=== PATIENT | male | born 1980 | race Caucasian/White ===

== ENCOUNTER 2017-10-04 11:14 | Emergency (ER) | payer MEDICAID, OTHER ==
[2017-10-04 11:25] VITALS: BP 132/85; PULSE 69; RESP 18; TEMP 98.2; O2SAT 95
--- NOTE | 2017-10-04 12:02 | RAD ---
Date of service: 10/04/2017 HISTORY: cough COMPARISON: No prior. TECHNIQUE: Chest PA and lateral FINDINGS: LUNGS: No active pulmonary disease. PLEURA: No significant pleural effusion identified. No pneumothorax apparent. CARDIOVASCULAR: Normal. OSSEOUS STRUCTURES: No significant abnormalities. VISUALIZED UPPER ABDOMEN: Normal. OTHER FINDINGS: None. IMPRESSION: No active disease.
--- NOTE | 2017-10-04 12:07 | C.PDOC ---
History Of Present Illness 37 yo male c/o "I got a cough " for three days. "Its better now that Im getting the phlegm out." Denies fever, chest pain, sob, sore throat, abdominal pain, or n/v. Took Dayquil yesterday, none today. Time Seen by Provider: 10/04/17 11:27 Chief Complaint (Nursing): Cough, Cold, Congestion History Per: Patient History/Exam Limitations: no limitations Onset/Duration Of Symptoms: Days Current Symptoms Are (Timing): Still Present Severity: Moderate Past Medical History Reviewed: Historical Data, Nursing Documentation, Vital Signs Vital Signs: Last Vital Signs Temp 98.2 F 10/04/17 11:22 Pulse 69 10/04/17 11:22 Resp 18 10/04/17 11:22 BP 132/85 10/04/17 11:22 Pulse Ox 95 10/04/17 13:06 - Medical History PMH: Anxiety Denies: Chronic Kidney Disease Surgical History: No Surg Hx - [facility] Procedures TETANUS TOXOID ADMINIST (02/07/14) Family History: States: No Known Family Hx - Social History Hx Tobacco Use: Yes Hx Alcohol Use: Yes Hx Substance Use: No - Immunization History Hx Tetanus Toxoid Vaccination: Yes Hx Influenza Vaccination: No Hx Pneumococcal Vaccination: No Review Of Systems Except As Marked, All Systems Reviewed And Found Negative. Constitutional: Negative for: Fever, Chills ENT: Negative for: Throat Pain Cardiovascular: Negative for: Chest Pain Respiratory: Positive for: Cough. Negative for: Shortness of Breath Gastrointestinal: Negative for: Nausea, Vomiting, Abdominal Pain Physical Exam - Physical Exam Appears: Non-toxic, No Acute Distress (No cough noted, layign flat, speaking in full sentences) Skin: Normal Color, Warm, Dry Head: Atraumatic, Normacephalic Eye(s): bilateral: Normal Inspection, EOMI Ear(s): Bilateral: Normal Nose: Normal Oral Mucosa: Moist Throat: Normal, No Erythema, No Exudate Neck: Normal ROM, Supple Chest: Symmetrical Cardiovascular: Rhythm Regular Respiratory: Normal Breath Sounds, No Rales, No Rhonchi, No Wheezing Gastrointestinal/Abdominal: Soft, No Tenderness Extremity: Normal ROM Neurological/Psych: Oriented x3, Normal Speech ED Course And Treatment O2 Sat by Pulse Oximetry: 95 (RA) Pulse Ox Interpretation: Normal - Radiology CXR: Interpreted by Me, Viewed By Me CXR Interpretation: Yes: No Acute Disease Progress Note: CXR was negative. Discussed with pt hydration, symptomatic treatment , and instructed to follow up with PMD in 1-2 days. Disposition - Disposition Referrals: Jeancarlos Conrad MD [Staff Provider] - Disposition: HOME/ ROUTINE Disposition Time: 12:03 Condition: STABLE Additional Instructions: Follow up with your doctor in 1-2 days. Return to ER if symptoms persist or worsen. Prescriptions: Benzonatate [Tessalon Perle] 100 mg PO TID PRN #15 capsule PRN Reason: Cough Instructions: Upper Respiratory Infection (ED) Forms: [employer] (Kiswahili) - Clinical Impression Clinical Impression: Upper respiratory infection - PA / PRESSURE TESTER / Resident Statement MD/DO has reviewed & agrees with the documentation as recorded. - Scribe Statement The provider has reviewed the documentation as recorded by the Iliribe Sabas Pearson Provider Attestation All medical record entries made by the Scribe were at my direction and personally dictated by me. I have reviewed the chart and agree that the record accurately reflects my personal performance of the history, physical exam, medical decision making, and the department course for this patient. I have also personally directed, reviewed, and agree with the discharge instructions and disposition.
== END 2017-10-04 12:15 | disposition home or self-care (01) ==
LOC: C.ER 11:14
DX: J06.9 Acute upper respiratory infection, unspecified (principal); F17.210 Nicotine dependence, cigarettes, uncomplicated

== ENCOUNTER 2017-11-08 15:52 | Emergency (ER) | payer MEDICAID, OTHER ==
[2017-11-08 15:57] VITALS: TEMP 98.2; O2SAT 97
--- NOTE | 2017-11-08 16:18 | C.PDOC ---
History Of Present Illness CC: Cold Symptoms Patient is a 37 year old male with no known past medical history who presents to the ED with cold symptoms. Patient was seen 10/04/17 for cold symptoms with negative imaging and was discharge with carly perezfabián. Patient presents to the ED with the same symptoms. Patient denies any chest pain, palpitations, SOB , fever, chills, headache, runny nose, congestion or facial pain. Chief Complaint (Nursing): Cough, Cold, Congestion History Per: Patient History/Exam Limitations: no limitations Onset/Duration Of Symptoms: Days Current Symptoms Are (Timing): Still Present Severity: Mild Pain Scale Rating Of: 2 Past Medical History Vital Signs: Last Vital Signs Temp 98.2 F 11/08/17 15:57 Pulse 68 11/08/17 16:50 Resp 18 11/08/17 16:50 BP 128/73 11/08/17 16:50 Pulse Ox 97 11/08/17 16:50 - Medical History PMH: Anxiety Denies: Chronic Kidney Disease - [facility] Procedures TETANUS TOXOID ADMINIST (02/07/14) Family History: States: Unknown Family Hx - Social History Hx Tobacco Use: Yes Hx Alcohol Use: Yes Hx Substance Use: No - Immunization History Hx Tetanus Toxoid Vaccination: No Hx Influenza Vaccination: No Hx Pneumococcal Vaccination: No Review Of Systems Constitutional: Negative for: Fever, Chills, Weakness Eyes: Negative for: Pain, Vision Change ENT: Negative for: Ear Pain, Ear Discharge, Nose Congestion, Mouth Pain, Throat Swelling Cardiovascular: Negative for: Chest Pain, Palpitations Respiratory: Positive for: Cough, Sputum. Negative for: Shortness of Breath, Hemoptysis, SOB with Excertion, Pleuritic Pain, Wheezing Gastrointestinal: Negative for: Nausea, Vomiting, Abdominal Pain, Diarrhea, Constipation Musculoskeletal: Negative for: Neck Pain, Shoulder Pain Skin: Negative for: Rash Neurological: Negative for: Headache, Dizziness Physical Exam - Physical Exam Appears: Well, No Acute Distress Skin: Normal Color, Warm Head: Atraumatic, Normacephalic Eye(s): bilateral: Normal Inspection, PERRL, EOMI Ear(s): Bilateral: Normal Nose: Normal, No Discharge, No Epistaxis Oral Mucosa: Moist Tongue: Normal Appearing Lips: Normal Appearing Throat: Normal, No Erythema, No Exudate, No Drooling, No Mass Neck: Normal, Normal ROM Cardiovascular: Rhythm Regular Respiratory: Normal Breath Sounds, No Decreased Breath Sounds, No Accessory Muscle Use, No Rales, No Rhonchi, No Stridor, No Wheezing Gastrointestinal/Abdominal: Normal Exam, Bowel Sounds, Soft, No Tenderness, No Organomegaly, No Mass, No Distention Extremity: Normal ROM, No Tenderness, No Pedal Edema Extremity: Bilateral: Atraumatic Neurological/Psych: Oriented x3, Normal Speech, Normal Cognition ED Course And Treatment O2 Sat by Pulse Oximetry: 97 Disposition Discussed With DrKaren: Luis Dial - Disposition Referrals: [facility] [Outside] Disposition: HOME/ ROUTINE Disposition Time: 16:22 Condition: GOOD Additional Instructions: Please discharge patient home Please follow up with [facility] in order to establish primary care, in 1-2 days We encourage you to stop tobacco use as discussed Please take Robitussin 15mg PO Q8H for cough as needed Please continue hydration Prescriptions: Dextromethorphan HBr [Robitussin] 15 mg PO Q8 PRN #10 capsule PRN Reason: Cough And Congestion Instructions: Smoking: Not Just Harmful to Your Lungs and Heart Forms: [facility] (Belarusian), General Discharge Instructions - Clinical Impression Clinical Impression: Tobacco abuse, Smokers' cough
[2017-11-08 16:59] VITALS: BP 128/73; PULSE 68; RESP 18
== END 2017-11-08 16:50 | disposition home or self-care (01) ==
LOC: C.ER 15:52
DX: J41.0 Simple chronic bronchitis (principal); Z72.0 Tobacco use

== ENCOUNTER 2017-11-29 18:15 | Emergency (ER) | payer MEDICAID ==
[2017-11-29] MEDS ORDERED: Sodium Chloride 0.9% 1,000 ML IV ONE (19:38)
[2017-11-29 20:01] LABS: BASO # 0.1 K/uL (0.0-0.2); BASO % 1.3 % (0.0-2.0); EOS # 0.3 K/uL (0.0-0.7); EOS % 2.9 % (0.0-4.0); HEMOGLOBIN 14.8 g/dL (12.0-18.0); LYMPH # 1.6 K/uL (1.0-4.3); LYMPH % 16.7 % (20.0-40.0); MEAN CELL VOLUME 89.6 fL (80.0-94.0); MEAN CORPUSCULAR HEMOGLOBIN 31.2 pg (27.0-31.0); MEAN CORPUSCULAR HGB CONC 34.8 g/dL (33.0-37.0); MEAN PLATELET VOLUME 8.5 fL (7.2-11.7); MONO # 0.6 K/uL (0.0-0.8); NEUT # 6.9 K/uL (1.8-7.0); NEUT % 73.1 % (50.0-75.0); NRBC % 0.1 % (0.0-2.0); RBC 4.73 Mil/uL (4.40-5.90); RED CELL DISTRIBUTION WIDTH 13.7 % (11.5-14.5); WHITE BLOOD COUNT 9.4 K/uL (4.8-10.8)
[2017-11-29 20:03] VITALS: O2SAT 99
[2017-11-29 20:17] LABS: ALB/GLOB RATIO 1.3 (1.0-2.1); ALBUMIN 4.3 g/dL (3.5-5.0); ALT/SGPT 54 U/L (21-72); AST/SGOT 40 U/L (17-59); BLOOD UREA NITROGEN 9 mg/dL (9-20); CALCIUM 9.5 mg/dl (8.6-10.4); GFR NON-AFRICAN AMERICAN > 60
--- NOTE | 2017-11-29 21:11 | C.PDOC ---
History Of Present Illness 37-year-old male presents to the ED for evaluation of weakness, lightheadedness and tooth pain. Patient states he has been feeling weak and lightheaded for the past week, and reports association with chills, mild headache and generalized body aches. Patient also reports mild sore throat. Patient is concerned because he was evaluated by a dentist for cracked tooth on the left side of his mouth one week ago. Patient was given three injections at the time and was instructed to take antibiotics and Ibuprofen. Patient states he did not take the antibiotics because he was not feeling well. Patient does not have a regular doctor. He reports history of anxiety and denies history of any surgeries. Patient states he smokes and drinks socially, denies drug use. Patient denies fever. Time Seen by Provider: 11/29/17 19:09 Chief Complaint (Nursing): Flu-like Symptoms History Per: Patient History/Exam Limitations: no limitations Onset/Duration Of Symptoms: Days Current Symptoms Are (Timing): Still Present Associated Symptoms: Chills, Sore Throat. denies: Fever Additional History Per: Patient Past Medical History Reviewed: Historical Data, Nursing Documentation, Vital Signs Vital Signs: Last Vital Signs Temp 98.3 F 11/29/17 21:24 Pulse 81 11/29/17 21:24 Resp 19 11/29/17 21:24 BP 131/77 11/29/17 21:24 Pulse Ox 99 12/03/17 16:48 - Medical History PMH: Anxiety Denies: Chronic Kidney Disease Surgical History: No Surg Hx - [facility] Procedures TETANUS TOXOID ADMINIST (02/07/14) Family History: States: Unknown Family Hx - Social History Hx Tobacco Use: Yes Hx Alcohol Use: Yes Hx Substance Use: No - Immunization History Hx Tetanus Toxoid Vaccination: No Hx Influenza Vaccination: No Hx Pneumococcal Vaccination: No Review Of Systems Constitutional: Positive for: Chills, Weakness. Negative for: Fever ENT: Positive for: Throat Pain, Other (tooth pain ) Musculoskeletal: Positive for: Other (generalized body aches) Neurological: Positive for: Headache, Other (lightheadedness ) Physical Exam - Physical Exam Appears: Non-toxic, No Acute Distress Skin: Warm, Dry Head: Atraumatic, Normacephalic Eye(s): bilateral: PERRL, EOMI Oral Mucosa: Moist Teeth: Other (large cavity to last mandibular molar that is mildly tender to palpation. no laxity or dental abscess visualized ) Throat: No Erythema, No Exudate Neck: Normal ROM, Trachea Midline Lymphatic: No Adenopathy Chest: Symmetrical, No Tenderness Cardiovascular: Rhythm Regular, No Murmur Respiratory: Normal Breath Sounds, No Rales, No Wheezing Gastrointestinal/Abdominal: Soft, No Tenderness Back: Normal Inspection, No CVA Tenderness Extremity: Normal ROM, No Deformity Neurological/Psych: Oriented x3, Normal Motor, Normal Sensation ED Course And Treatment - Laboratory Results Result Diagrams: 11/29/17 19:58 11/29/17 19:58 Lab Interpretation: Normal O2 Sat by Pulse Oximetry: 99 (on RA ) Pulse Ox Interpretation: Normal Medical Decision Making Medical Decision Making: Impression: flu-like illness Plan: * bloodwork * Influenza A/B * Rapid Strep swab * [place] swab * IV Fluids * reassess and disposition Progress: Bloodwork, Influenza A/B, Rapid Strep swab and [place] swab ordered. IV Fluids given. Labs unremarkable. Pt continues to have benign physical exam. Stable for discharge. Advised to start antibiotics as prescribed. Disposition Counseled Patient/Family Regarding: Studies Performed, Diagnosis, Need For Followup - Disposition Referrals: [facility] at [facility] [Outside] Disposition: HOME/ ROUTINE Disposition Time: 21:00 Condition: STABLE Additional Instructions: START YOUR AMOXICILLIN IMMEDIATELY FOLLOW UP WITH YOUR DENTIST NEXT WEEK. FOLLOW UP WITH CLINIC NEXT WEEK WELL FOR FURTHER EVALUATION Instructions: Generalized Weakness (DC), Dental Pain (DC) Forms: Work Excuse - Clinical Impression Clinical Impression: Influenza-like illness - Scribe Statement The provider has reviewed the documentation as recorded by the Scribe (Vera oCnrad) Provider Attestation: All medical record entries made by the Scribe were at my direction and personally dictated by me. I have reviewed the chart and agree that the record accurately reflects my personal performance of the history, physical exam, medical decision making, and the department course for this patient. I have also personally directed, reviewed, and agree with the discharge instructions and disposition.
[2017-11-29 21:25] VITALS: BP 131/77; PULSE 81; RESP 19; TEMP 98.3
== END 2017-11-29 21:25 | disposition home or self-care (01) ==
LOC: C.ER 18:15
DX: J11.1 Influenza due to unidentified influenza virus with other respiratory manifestations (principal)
CPT/HCPCS: 80053; 85025; 86308; 87070; 87430; 87804; 96360; 99285; J7030

== ENCOUNTER 2018-01-17 17:38 | Emergency (ER) | payer MEDICAID ==
[2018-01-17 17:58] VITALS: RESP 18
--- NOTE | 2018-01-17 18:03 | C.PDOC ---
History Of Present Illness 37 y/o male pt presents to the ER with c/o light-headedness for 2-3 months. Pt reports he did not come to the ER immediately because he thought it was due to his cold. Pt was seen in the ER twice with normal test results. Pt denies v omiting, fever, chills, diarrhea, abdominal pain and trauma. Pt admits to not eating today. Time Seen by Provider: 01/17/18 18:03 Chief Complaint (Nursing): Weakness/Neurological Deficit History Per: Patient History/Exam Limitations: no limitations Onset/Duration Of Symptoms: Days (2-3 months) Current Symptoms Are (Timing): Still Present Past Medical History Reviewed: Historical Data, Nursing Documentation, Vital Signs Vital Signs: Last Vital Signs Temp 98.6 F 01/17/18 17:54 Pulse 85 01/17/18 17:54 Resp 18 01/17/18 17:54 BP 136/89 01/17/18 17:54 Pulse Ox 99 01/17/18 17:54 - Medical History PMH: Anxiety - [facility] Procedures TETANUS TOXOID ADMINIST (02/07/14) Family History: States: Unknown Family Hx - Social History Hx Tobacco Use: Yes Hx Alcohol Use: Yes Hx Substance Use: No - Immunization History Hx Tetanus Toxoid Vaccination: No Hx Influenza Vaccination: No Hx Pneumococcal Vaccination: No Review Of Systems Constitutional: Negative for: Fever, Chills, Other (trauma) Eyes: Negative for: Pain ENT: Negative for: Ear Pain Cardiovascular: Positive for: Light Headedness. Negative for: Chest Pain Respiratory: Negative for: Cough Gastrointestinal: Negative for: Nausea, Vomiting, Abdominal Pain, Diarrhea Genitourinary: Negative for: Dysuria, Frequency Musculoskeletal: Negative for: Neck Pain Skin: Negative for: Rash Neurological: Negative for: Weakness, Numbness Physical Exam - Physical Exam Appears: Non-toxic, No Acute Distress Skin: Warm, Dry Head: Normacephalic Eye(s): bilateral: Normal Inspection, PERRL, EOMI Nose: Normal, No Flaring, No Discharge, No Epistaxis Oral Mucosa: Moist Throat: Normal Neck: Normal ROM, Supple, Other (no meningeal signs- (-) kernigs's and Brudzinski's ) Chest: Symmetrical Cardiovascular: Rhythm Regular, No Friction Rub Respiratory: No Rales, No Rhonchi, No Wheezing Gastrointestinal/Abdominal: Soft, No Tenderness Back: No CVA Tenderness Extremity: Normal ROM (x4) Neurological/Psych: Oriented x3, Normal Speech, Normal Cognition, Normal Cranial Nerves, No Cerebellar Signs, Normal Motor, Normal Sensation Gait: Steady ED Course And Treatment - Laboratory Results Result Diagrams: 01/17/18 18:29 01/17/18 18:29 ECG: Interpreted By Me, Viewed By Me ECG Rhythm: Sinus Rhythm ECG Interpretation: Normal, No Acute Changes Rate From EC O2 Sat by Pulse Oximetry: 99 (RA) Pulse Ox Interpretation: Normal - Radiology CXR: Interpreted by Me, Viewed By Me CXR Interpretation: Yes: No Acute Disease, Other. No: Infiltrates - CT Scan/US head Other Rad Studies (CT/US): Read By Radiologist, Radiology Report Reviewed CT/US Interpretation: Accession No. : [id number]. Patient Name / ID : BRAD LAUREN / [id number]. Exam Date : 01/17/2018 18:40:16 ( Approved ). Study Comment : Sex / Age : M / 37Y. Creator : Jordin Jimenez MD. Dictator : Jordin Jimenez MD. Senior Systems Architect : Wildlife Protector : Jordin Jimenez MD. Approver2 : Report Date : 01/17/2018 19:04:34. My Comment : . Date of service: 01/17/2018. PROCEDURE: CT HEAD WITHOUT CONTRAST. HISTORY: fitch. COMPARISON: None available. TECHNIQUE: Axial computed tomography images were obtained through the head/brain without intravenous contrast. Radiation dose: Total exam DLP = 1152.43 mGy-cm. This CT exam was performed using one or more of the following dose reduction techniques: Automated exposure control, adjustment of the mA and/or kV according to patient size, and/or use of iterative reconstruction technique. FINDINGS: HEMORRHAGE: No intracranial hemorrhage. BRAIN: No mass effect or edema. No atrophy or chronic microvascular ischemic changes. VENTRICLES: Unremarkable. No hydrocephalus. CALVARIUM: Unremarkable. PARANASAL SINUSES: Unremarkable as visualized. No significant inflammatory changes. MASTOID AIR CELLS: Unremarkable as visualized. No inflammatory changes. OTHER FINDINGS: None. IMPRESSION: No acute intracranial pathology. Medical Decision Making Medical Decision Making: Impression: dehydration Plans: -- CT head -- EKG -- chem labs -- blood work -- CXR -- UA Reassess: On reassessment, patient is resting comfortably, without sinus pressure/ tenderness, and is in no acute distress. Labs, imaging, ekg all unremarkable. Neuro exam remains unchanged. Patient was instructed to follow up with neurology in 1-2 days for further evaluation. Disposition - Disposition Referrals: Steve Aguilar MD [Staff Provider] - [facility] [Outside] Disposition: HOME/ ROUTINE Disposition Time: 20:55 Condition: GOOD Instructions: Generalized Weakness (DC) Forms: [employer] (Armenian) - Clinical Impression Clinical Impression: Muscle weakness - Scribe Statement The provider has reviewed the documentation as recorded by the Scribe Kim Do Provider Attestation: All medical record entries made by the Scribe were at my direction and p ersonally dictated by me. I have reviewed the chart and agree that the record accurately reflects my personal performance of the history, physical exam, medical decision making, and the department course for this patient. I have also personally directed, reviewed, and agree with the discharge instructions and disposition.
[2018-01-17 18:37] LABS: BASO # 0.1 K/uL (0.0-0.2); BASO % 0.8 % (0.0-2.0); EOS # 0.3 K/uL (0.0-0.7); EOS % 3.3 % (0.0-4.0); HEMOGLOBIN 14.5 g/dL (12.0-18.0); LYMPH # 1.6 K/uL (1.0-4.3); LYMPH % 16.5 % (20.0-40.0); MEAN CELL VOLUME 89.1 fL (80.0-94.0); MEAN CORPUSCULAR HEMOGLOBIN 30.1 pg (27.0-31.0); MEAN CORPUSCULAR HGB CONC 33.8 g/dL (33.0-37.0); MEAN PLATELET VOLUME 8.3 fL (7.2-11.7); MONO # 0.6 K/uL (0.0-0.8); MONO % 6.7 % (0.0-10.0); NEUT % 72.7 % (50.0-75.0); RBC 4.8 Mil/uL (4.40-5.90); RED CELL DISTRIBUTION WIDTH 13.5 % (11.5-14.5); WHITE BLOOD COUNT 9.6 K/uL (4.8-10.8)
[2018-01-17 18:50] LABS: ALB/GLOB RATIO 1.3 (1.0-2.1); ALBUMIN 4.4 g/dL (3.5-5.0); ALT/SGPT 56 U/L (21-72); AST/SGOT 48 U/L (17-59); BLOOD UREA NITROGEN 11 mg/dL (9-20); CALCIUM 9.6 mg/dl (8.6-10.4); GFR NON-AFRICAN AMERICAN > 60
[2018-01-17 19:02] LABS: B-TYPE NATRIURETIC PEPTIDE 43.7 pg/mL (0-450)
--- NOTE | 2018-01-17 19:08 | CT ---
Date of service: 01/17/2018 PROCEDURE: CT HEAD WITHOUT CONTRAST. HISTORY: fitch COMPARISON: None available. TECHNIQUE: Axial computed tomography images were obtained through the head/brain without intravenous contrast. Radiation dose: Total exam DLP = 1152.43 mGy-cm. This CT exam was performed using one or more of the following dose reduction techniques: Automated exposure control, adjustment of the mA and/or kV according to patient size, and/or use of iterative reconstruction technique. FINDINGS: HEMORRHAGE: No intracranial hemorrhage. BRAIN: No mass effect or edema. No atrophy or chronic microvascular ischemic changes. VENTRICLES: Unremarkable. No hydrocephalus. CALVARIUM: Unremarkable. PARANASAL SINUSES: Unremarkable as visualized. No significant inflammatory changes. MASTOID AIR CELLS: Unremarkable as visualized. No inflammatory changes. OTHER FINDINGS: None. IMPRESSION: No acute intracranial pathology.
[2018-01-17 20:47] VITALS: BP 124/83; PULSE 78; TEMP 98.8
[2018-01-17 20:54] VITALS: O2SAT 99
--- NOTE | 2018-01-18 08:19 | RAD ---
HISTORY: Weakness COMPARISON: 10/04/2017. TECHNIQUE: Chest PA and lateral FINDINGS: LINES AND TUBES: None. LUNG AND PLEURA: The lungs are well inflated and clear. No pleural effusion or pneumothorax. HEART AND MEDIASTINUM: The heart is not enlarged. No aortic atherosclerotic calcification present. The hilar and mediastinal contours are within normal limits. SKELETAL STRUCTURES: The bony structures are within normal limits for the patient's age. VISUALIZED UPPER ABDOMEN: Normal. OTHER FINDINGS: None. IMPRESSION: No active pulmonary disease.
--- NOTE | 2018-01-18 21:29 | CARD ---
APPROVED REPORT Date of service: 01/17/2018 EKG Measurement Heart [id number] <Conclusion> Normal sinus rhythm Normal ECG
== END 2018-01-17 21:11 | disposition home or self-care (01) ==
LOC: C.ER 17:38
DX: M62.81 Muscle weakness (generalized) (principal); F41.9 Anxiety disorder, unspecified

== ENCOUNTER 2018-03-05 21:43 | Emergency (ER) | payer MEDICAID ==
[2018-03-05] MEDS ORDERED: Sodium Chloride 0.9% 1,000 ML IV ONE (21:49)
--- NOTE | 2018-03-05 21:49 | C.PDOC ---
History Of Present Illness Patient presents with intermittent abdominal pain which worsened over the last month. Feels burning in his abdomen if not eating, has had some nausea nad diarrhea followed by constipation. No weight loss. Tolerating po. No f/c/n/v Time Seen by Provider: 03/05/18 21:47 Chief Complaint (Nursing): Abdominal Pain History Per: Patient History/Exam Limitations: no limitations Onset/Duration Of Symptoms: Days (30) Current Symptoms Are (Timing): Still Present Context: Other Severity: Moderate Pain Scale Rating Of: 4 Location Of Pain/Discomfort: Diffuse Radiation Of Pain To:: None Quality Of Discomfort: Dull, Cramping Associated Symptoms: Nausea, Diarrhea. denies: Fever, Chills, Vomiting Exacerbating Factors: Food Alleviating Factors: None Last Bowel Movement: Today Recent travel outside of the [place]: No Additional History Per: Patient Past Medical History Reviewed: Historical Data, Nursing Documentation, Vital Signs Vital Signs: Last Vital Signs Temp 98.9 F 03/05/18 21:45 Pulse 103 H 03/05/18 21:45 Resp 20 03/05/18 21:45 BP Pulse Ox 95 03/05/18 21:45 - Medical History PMH: Anxiety Denies: Chronic Kidney Disease - [facility] Procedures TETANUS TOXOID ADMINIST (02/07/14) Family History: States: No Known Family Hx - Social History Hx Tobacco Use: Yes Hx Alcohol Use: Yes Hx Substance Use: No - Immunization History Hx Tetanus Toxoid Vaccination: No Hx Influenza Vaccination: No Hx Pneumococcal Vaccination: No Review Of Systems Constitutional: Negative for: Fever, Chills ENT: Negative for: Throat Pain Cardiovascular: Negative for: Chest Pain Respiratory: Negative for: Shortness of Breath Gastrointestinal: Positive for: Nausea, Abdominal Pain, Diarrhea. Negative for: Vomiting Genitourinary: Negative for: Dysuria Musculoskeletal: Negative for: Back Pain Skin: Negative for: Rash Neurological: Negative for: Weakness Psych: Negative for: Anxiety Physical Exam - Physical Exam Appears: Non-toxic, No Acute Distress Skin: Warm, Dry, Other (eczema , left leg and lower back) Eye(s): bilateral: Normal Inspection Oral Mucosa: Moist Neck: Supple Chest: Symmetrical Cardiovascular: Rhythm Regular Respiratory: No Rales, No Rhonchi, No Wheezing Gastrointestinal/Abdominal: Bowel Sounds (tympanic to percussion), Soft, No Tenderness, Distention, No Guarding, No Rebound Rectal: Maroon Stool Back: Normal Inspection Extremity: Normal ROM Extremity: Bilateral: Atraumatic Neurological/Psych: Oriented x3, Normal Speech, Normal Cognition Gait: Steady ED Course And Treatment - Laboratory Results Result Diagrams: 03/05/18 21:55 03/05/18 21:55 ECG: Interpreted By Me, Viewed By Me ECG Rhythm: Sinus Rhythm (86), R BBB, Nonspecific Changes O2 Sat by Pulse Oximetry: 95 Pulse Ox Interpretation: Normal Reevaluation Time: 00:45 Reassessment Condition: Improved Medical Decision Making Medical Decision Making: Upon provider reevaluation patient is feeling better, is medically stable, and requires no further treatment in the ED at this time. Patient will be discharged home with Rx for protonix, hydrocortisone . Counseling was provided and all questions were answered regarding diagnosis and need for follow up with the referred clinic. There is agreement to discharge plan. Return if symptoms persist or worsen. Disposition Counseled Patient/Family Regarding: Studies Performed, Diagnosis, Need For Followup, Rx Given - Disposition Referrals: [facility] [Outside] [facility] [Outside] Paco Brown MD [Staff Provider] - Disposition: HOME/ ROUTINE Disposition Time: 21:49 Condition: FAIR Additional Instructions: Please return if symptoms recur Prescriptions: Hydrocortisone Lotion 2.5% 59 ml TP BID #1 lot Pantoprazole Sodium [Protonix] 40 mg PO DAILY #15 ect Instructions: Acute Abdomen (Belly Pain), Adult (DC), Eczema (Atopic Dermatitis) (DC) Forms: [employer] (Urdu) - Clinical Impression Clinical Impression: Abdominal pain, Eczema
[2018-03-05 21:58] LABS: BASO # 0.1 K/uL (0.0-0.2); EOS # 0.3 K/uL (0.0-0.7); EOS % 2.4 % (0.0-4.0); HEMOGLOBIN 14.4 g/dL (12.0-18.0); LYMPH # 2.2 K/uL (1.0-4.3); LYMPH % 19.7 % (20.0-40.0); MEAN CELL VOLUME 89.6 fL (80.0-94.0); MEAN CORPUSCULAR HEMOGLOBIN 30.3 pg (27.0-31.0); MEAN CORPUSCULAR HGB CONC 33.8 g/dL (33.0-37.0); MEAN PLATELET VOLUME 8.6 fL (7.2-11.7); MONO # 0.8 K/uL (0.0-0.8); MONO % 7.1 % (0.0-10.0); NEUT # 7.8 K/uL (1.8-7.0); NEUT % 69.8 % (50.0-75.0); RBC 4.74 Mil/uL (4.40-5.90); WHITE BLOOD COUNT 11.2 K/uL (4.8-10.8)
[2018-03-05] MEDS ORDERED: Sodium Chloride 0.9% 1,000 ML ONE (22:00)
[2018-03-05 22:08] LABS: PROTHROMBIN TIME 10.4 SECONDS (9.7-12.2)
[2018-03-05 22:15] LABS: ALB/GLOB RATIO 1.2 (1.0-2.1); ALBUMIN 4.4 g/dL (3.5-5.0); ALT/SGPT 82 U/L (21-72); AST/SGOT 61 U/L (17-59); BLOOD UREA NITROGEN 17 mg/dL (9-20); CALCIUM 9.3 mg/dl (8.6-10.4); GFR NON-AFRICAN AMERICAN > 60; LIPASE 96 U/L (23-300)
[2018-03-05 22:52] LABS: SQUAMOUS EPITHIAL < 1 /hpf (0-5); URINE BACTERIA RARE (<OCC); URINE BILIRUBIN NEGATIVE (NEGATIVE); URINE CLARITY Clear (Clear); URINE COLOR Yellow (YELLOW); URINE GLUCOSE (UA) NORMAL (Normal); URINE LEUKOCYTE ESTERASE NEG Leu/uL (Negative); URINE PROTEIN NEGATIVE (NEGATIVE); URINE UROBILINOGEN NORMAL mg/dL (0.2-1.0)
[2018-03-05 22:55] LABS: URINE BLOOD 1+ (NEGATIVE)
[2018-03-05] MEDS ORDERED: Iodixanol 320 MG/ML 100 ML BOTTLE IV ONE (23:13)
[2018-03-06 00:36] VITALS: BP 134/92; PULSE 79; RESP 14; TEMP 98.5
[2018-03-06 00:48] VITALS: O2SAT 95
--- NOTE | 2018-03-06 10:38 | CT ---
Date of service: 03/05/2018 PROCEDURE: CT Abdomen and Pelvis with contrast HISTORY: abd pain, poss gi bleed COMPARISON: None available TECHNIQUE: Contrast dose: 100 mL Visipaque 320 Radiation dose: Total exam DLP = 541.84 mGy-cm. This CT exam was performed using one or more of the following dose reduction techniques: Automated exposure control, adjustment of the mA and/or kV according to patient size, and/or use of iterative reconstruction technique. FINDINGS: LOWER THORAX: No visible consolidation, pleural effusion, or pneumothorax. Small hiatal hernia/distal esophageal wall thickening. LIVER: Hypoattenuation of the liver compatible with hepatic steatosis. GALLBLADDER AND BILE DUCTS: Unremarkable. PANCREAS: Unremarkable. SPLEEN: Unremarkable. ADRENALS: Unremarkable. KIDNEYS AND URETERS: The kidneys enhance symmetrically. No hydronephrosis or obstructing calculus identified. VASCULATURE: No aortic aneurysm. No atherosclerotic calcification or mural plaque present. BOWEL: Stomach is nondistended. Lack of oral contrast limits evaluation for bowel pathology. Bowel loops appear within normal limits of caliber without evidence of obstruction. APPENDIX: The appendix appears within normal limits of caliber. No secondary signs of acute appendicitis. PERITONEUM: No significant free fluid. No definite free air. LYMPH NODES: No bulky adenopathy identified. BLADDER: Unremarkable. REPRODUCTIVE: Unremarkable. BONES: No acute osseous abnormality is detected. OTHER FINDINGS: None. IMPRESSION: No acute pathology identified. Incidental findings as above. Preliminary impression was provided by Arden Reed.
--- NOTE | 2018-03-06 12:16 | CARD ---
APPROVED REPORT Date of service: 03/05/2018 EKG Measurement Heart [id number] <Conclusion> Normal sinus rhythm with sinus arrhythmia Incomplete right bundle branch block Borderline ECG
== END 2018-03-06 00:56 | disposition home or self-care (01) ==
LOC: C.ER 21:43
DX: R10.9 Unspecified abdominal pain (principal); L30.9 Dermatitis, unspecified; F41.9 Anxiety disorder, unspecified
CPT/HCPCS: 74177; 80053; 81001; 83690; 85025; 85610; 85730; 86850; 86900; 93005; 96360; 99285; G0328; J7030; Q9967

== ENCOUNTER 2018-03-30 15:13 | Emergency (ER) | payer MEDICAID ==
[2018-03-30 15:29] VITALS: RESP 18; TEMP 98; O2SAT 98
[2018-03-30 15:39] LABS: SQUAMOUS EPITHIAL < 1 /hpf (0-5); URINE BILIRUBIN NEGATIVE (NEGATIVE); URINE CLARITY Clear (Clear); URINE COLOR Yellow (YELLOW); URINE GLUCOSE (UA) NORMAL (Normal); URINE LEUKOCYTE ESTERASE NEG Leu/uL (Negative); URINE PROTEIN NEGATIVE (NEGATIVE); URINE UROBILINOGEN NORMAL mg/dL (0.2-1.0)
[2018-03-30 15:49] LABS: URINE BLOOD 1+ (NEGATIVE)
--- NOTE | 2018-03-30 15:55 | C.PDOC ---
History Of Present Illness 37 year old male presents to the ED for evaluation of persistent abdominal bloating for more than 2 months, intermittent rectal bleed with pain, and phlegm x2 months. Patient has prior ED visits for the same symptoms. Admits to PMD visit, had not been evaluated by GI despite prior advice to. He also notes his current symptoms make him anxious. Denies fever, chills, weight loss, and any other associated symptoms. Social Hx: (+) tobacco smoker. Time Seen by Provider: 03/30/18 15:17 Chief Complaint (Nursing): Abdominal Pain History Per: Patient History/Exam Limitations: no limitations Onset/Duration Of Symptoms: Other (2 months+) Current Symptoms Are (Timing): Still Present Recent travel outside of the [place]: No Past Medical History Reviewed: Historical Data, Nursing Documentation, Vital Signs Vital Signs: Last Vital Signs Temp 98 F 03/30/18 15:17 Pulse 78 03/30/18 15:17 Resp 18 03/30/18 15:17 BP 126/79 03/30/18 15:17 Pulse Ox 98 03/30/18 15:17 - Medical History PMH: Anxiety Denies: Chronic Kidney Disease - [facility] Procedures TETANUS TOXOID ADMINIST (02/07/14) Family History: States: Unknown Family Hx - Social History Hx Tobacco Use: Yes Hx Alcohol Use: Yes Hx Substance Use: No - Immunization History Hx Tetanus Toxoid Vaccination: No Hx Influenza Vaccination: No Hx Pneumococcal Vaccination: No Review Of Systems Except As Marked, All Systems Reviewed And Found Negative. Constitutional: Negative for: Fever, Chills, Weight loss Respiratory: Positive for: Other (phlegm.) Gastrointestinal: Positive for: Other (abdominal bloating. ) Genitourinary: Positive for: Other (rectal bleed. ) Physical Exam - Physical Exam Appears: Well, Non-toxic, No Acute Distress Skin: Normal Color, Warm, Dry Head: Atraumatic, Normacephalic Eye(s): bilateral: Normal Inspection Oral Mucosa: Moist Neck: Normal ROM, Supple Chest: Symmetrical, No Deformity Cardiovascular: Rhythm Regular, No Murmur Respiratory: Normal Breath Sounds, No Rales, No Rhonchi, No Wheezing, Other (NARD) Gastrointestinal/Abdominal: Normal Exam, Soft, No Tenderness Extremity: Bilateral: Atraumatic, Normal Color And Temperature, Normal ROM Neurological/Psych: Oriented x3, Normal Speech, Normal Cognition ED Course And Treatment - Laboratory Results Result Diagrams: 03/30/18 16:04 03/30/18 16:04 Lab Results: Urine Color Yellow (YELLOW) 03/30/18 15:30 Urine Clarity Clear (Clear) 03/30/18 15:30 Urine pH 5.0 (5.0-8.0) 03/30/18 15:30 Ur Specific [place] 1.024 (1.003-1.030) 03/30/18 15:30 Urine Protein Negative mg/dL (NEGATIVE) 03/30/18 15:30 Urine Glucose (UA) Normal mg/dL (Normal) 03/30/18 15:30 Urine Ketones Negative mg/dL (NEGATIVE) 03/30/18 15:30 Urine Blood 1+ (NEGATIVE) H 03/30/18 15:30 Urine Nitrate Negative (NEGATIVE) 03/30/18 15:30 Urine Bilirubin Negative (NEGATIVE) 03/30/18 15:30 Urine Urobilinogen Normal mg/dL (0.2-1.0) 03/30/18 15:30 Ur Leukocyte Esterase Neg Alpesh/uL (Negative) 03/30/18 15:30 Urine WBC (Auto) 1 /hpf (0-5) 03/30/18 15:30 Urine RBC (Auto) 1 /hpf (0-3) 03/30/18 15:30 Ur Squamous Epith Cells < 1 /hpf (0-5) 03/30/18 15:30 Lab Interpretation: No Changes Compared To Prior Results O2 Sat by Pulse Oximetry: 98 (RA) Pulse Ox Interpretation: Normal Medical Decision Making Medical Decision Making: Plan: -Blood sent. -CXR -Urinalysis Progress/Update: Patient advised again on need for GI follow-up and need to stop smoking. 03.05.18 (-) guaiac Patient stable for discharge home. Disposition Counseled Patient/Family Regarding: Studies Performed, Diagnosis, Need For Followup, Smoking Cessation - Disposition Referrals: Bernard Higgins [Staff Provider] - [facility] [Outside] [facility] [Outside] Disposition: HOME/ ROUTINE Disposition Time: 17:12 Condition: GOOD Instructions: Cough, Adult (DC), Gas and Bloating Forms: [facility] (Icelandic) - Clinical Impression Clinical Impression: Abdominal colic, Abdominal bloating, Chronic abdominal pain, Coughing - Scribe Statement The provider has reviewed the documentation as recorded by the Scribe (Kelsey Pathak) Provider Attestation: All medical record entries made by the Scribe were at my direction and person ally dictated by me. I have reviewed the chart and agree that the record accurately reflects my personal performance of the history, physical exam, medical decision making, and the department course for this patient. I have also personally directed, reviewed, and agree with the discharge instructions and disposition.
--- NOTE | 2018-03-30 16:01 | RAD ---
Date of service: 03/30/2018 HISTORY: Cough COMPARISON: 01/17/2018 TECHNIQUE: Chest PA and lateral FINDINGS: LINES AND TUBES: None. LUNG AND PLEURA: The lungs are well inflated and clear. No pleural effusion or pneumothorax. HEART AND MEDIASTINUM: The heart is not enlarged. No aortic atherosclerotic calcifications present. The hilar and mediastinal contours are within normal limits. SKELETAL STRUCTURES: The bony structures are within normal limits for the patient's age. VISUALIZED UPPER ABDOMEN: Normal. OTHER FINDINGS: None. IMPRESSION: No active pulmonary disease.
[2018-03-30 16:09] LABS: BASO # 0.1 K/uL (0.0-0.2); BASO % 1.1 % (0.0-2.0); EOS # 0.2 K/uL (0.0-0.7); EOS % 2.2 % (0.0-4.0); HEMOGLOBIN 14.1 g/dL (12.0-18.0); LYMPH # 1.9 K/uL (1.0-4.3); MEAN CELL VOLUME 89.8 fL (80.0-94.0); MEAN CORPUSCULAR HEMOGLOBIN 30.1 pg (27.0-31.0); MEAN CORPUSCULAR HGB CONC 33.5 g/dL (33.0-37.0); MEAN PLATELET VOLUME 8.4 fL (7.2-11.7); MONO # 0.8 K/uL (0.0-0.8); MONO % 8.4 % (0.0-10.0); NEUT # 6.7 K/uL (1.8-7.0); NEUT % 69.3 % (50.0-75.0); RBC 4.69 Mil/uL (4.40-5.90); RED CELL DISTRIBUTION WIDTH 13.6 % (11.5-14.5); WHITE BLOOD COUNT 9.7 K/uL (4.8-10.8)
[2018-03-30 17:10] LABS: ALB/GLOB RATIO 1.3 (1.0-2.1); ALBUMIN 4.6 g/dL (3.5-5.0); ALT/SGPT 58 U/L (21-72); AST/SGOT 46 U/L (17-59); BLOOD UREA NITROGEN 13 mg/dL (9-20); CALCIUM 9.2 mg/dl (8.6-10.4); GFR NON-AFRICAN AMERICAN > 60
[2018-03-30 17:26] VITALS: BP 156/78; PULSE 79
== END 2018-03-30 17:26 | disposition home or self-care (01) ==
LOC: C.ER 15:13
DX: R10.84 Generalized abdominal pain (principal); R14.0 Abdominal distension (gaseous); G89.29 Other chronic pain; R05 Cough

== ENCOUNTER 2018-04-24 20:28 | Emergency (ER) | payer MEDICAID ==
[2018-04-24] MEDS ORDERED: Sodium Chloride 0.9% 1,000 ML IV ONE (21:06)
--- NOTE | 2018-04-24 21:06 | C.PDOC ---
History Of Present Illness Patient presents to the ER with a complaint of bilateral flank pain on and off for the past 2 months. Patient reports some more left flank pain with dysuria and nausea today, tolerating PO. Denies fever or chills. Time Seen by Provider: 04/24/18 21:05 Chief Complaint (Nursing): Abdominal Pain History Per: Patient History/Exam Limitations: no limitations Onset/Duration Of Symptoms: Days Current Symptoms Are (Timing): Still Present Severity: Moderate Pain Scale Rating Of: 4 Location Of Pain/Discomfort: Other (Bilateral flank pain, left more) Quality Of Discomfort: Unable To Describe Associated Symptoms: Nausea, Urinary Symptoms (Dysuria). denies: Fever, Chills Exacerbating Factors: None Alleviating Factors: None Recent travel outside of the [place]: No Past Medical History Reviewed: Historical Data, Nursing Documentation, Vital Signs Vital Signs: Last Vital Signs Temp 98.8 F 04/24/18 20:35 Pulse 94 H 04/24/18 20:35 Resp 16 04/24/18 20:35 BP 147/90 04/24/18 20:35 Pulse Ox 98 04/24/18 20:35 - Medical History PMH: Anxiety Denies: Chronic Kidney Disease - [facility] Procedures TETANUS TOXOID ADMINIST (02/07/14) Family History: States: No Known Family Hx - Social History Hx Tobacco Use: Yes Hx Alcohol Use: Yes Hx Substance Use: No - Immunization History Hx Tetanus Toxoid Vaccination: No Hx Influenza Vaccination: No Hx Pneumococcal Vaccination: No Review Of Systems Constitutional: Negative for: Fever, Chills Cardiovascular: Negative for: Chest Pain, Palpitations Respiratory: Negative for: Cough, Shortness of Breath Gastrointestinal: Positive for: Nausea Genitourinary: Positive for: Dysuria Musculoskeletal: Positive for: Other (Bilateral flank pain, more to left side) Neurological: Negative for: Weakness, Numbness Physical Exam - Physical Exam Appears: Non-toxic Skin: Warm, Dry Head: Normacephalic Oral Mucosa: Moist Chest: Symmetrical, No Tenderness Cardiovascular: Rhythm Regular Respiratory: No Rales, No Rhonchi, No Wheezing Gastrointestinal/Abdominal: Soft, No Tenderness, No Guarding, No Rebound, Other (Tympanic to percussion) Back: No CVA Tenderness Neurological/Psych: Oriented x3 ED Course And Treatment - Laboratory Results Result Diagrams: 04/24/18 21:40 04/24/18 21:40 O2 Sat by Pulse Oximetry: 98 (Room air) Pulse Ox Interpretation: Normal Progress Note: Blood work and urinalysis ordered. IV fluids, toradol, and zofran administered. Reevaluation Time: 23:14 Reassessment Condition: Improved Disposition Counseled Patient/Family Regarding: Studies Performed, Diagnosis, Need For Followup, Rx Given - Disposition Referrals: [facility] [Outside] [facility] [Outside] Disposition: HOME/ ROUTINE Disposition Time: 21:06 Condition: FAIR Additional Instructions: Please return if symptoms recur Prescriptions: Pantoprazole Sodium [Protonix] 40 mg PO DAILY #14 ect Instructions: Acute Abdomen (Belly Pain), Adult (DC), Groin Hernia (DC) Forms: [employer] (Mosotho) - Clinical Impression Clinical Impression: Abdominal pain, Inguinal hernia, left - Scribe Statement The provider has reviewed the documentation as recorded by the Scribromulo Iqbal All medical record entries made by the Scribe were at my direction and personally dictated by me. I have reviewed the chart and agree that the record accurately reflects my personal performance of the history, physical exam, medical decision making, and the department course for this patient. I have also personally directed, reviewed, and agree with the discharge instructions and disposition.
[2018-04-24 21:20] LABS: SQUAMOUS EPITHIAL 1 /hpf (0-5); URINE BACTERIA RARE (<OCC); URINE BILIRUBIN NEGATIVE (NEGATIVE); URINE CLARITY Clear (Clear); URINE COLOR Straw (YELLOW); URINE GLUCOSE (UA) NORMAL (Normal); URINE LEUKOCYTE ESTERASE NEG Leu/uL (Negative); URINE PROTEIN NEGATIVE (NEGATIVE); URINE UROBILINOGEN NORMAL mg/dL (0.2-1.0)
[2018-04-24 21:21] LABS: URINE BLOOD 1+ (NEGATIVE)
[2018-04-24 21:45] LABS: BASO # 0.1 K/uL (0.0-0.2); EOS # 0.2 K/uL (0.0-0.7); EOS % 2.1 % (0.0-4.0); HEMOGLOBIN 14.1 g/dL (12.0-18.0); LYMPH # 2.1 K/uL (1.0-4.3); MEAN CELL VOLUME 90.1 fL (80.0-94.0); MEAN CORPUSCULAR HEMOGLOBIN 30.1 pg (27.0-31.0); MEAN CORPUSCULAR HGB CONC 33.4 g/dL (33.0-37.0); MEAN PLATELET VOLUME 8.5 fL (7.2-11.7); MONO # 0.7 K/uL (0.0-0.8); MONO % 7.3 % (0.0-10.0); NEUT # 6.8 K/uL (1.8-7.0); NEUT % 68.6 % (50.0-75.0); RBC 4.68 Mil/uL (4.40-5.90); WHITE BLOOD COUNT 9.8 K/uL (4.8-10.8)
[2018-04-24 21:53] LABS: PROTHROMBIN TIME 10.8 SECONDS (9.7-12.2)
[2018-04-24 22:00] LABS: ALB/GLOB RATIO 1.4 (1.0-2.1); ALBUMIN 4.4 g/dL (3.5-5.0); ALT/SGPT 39 U/L (21-72); AST/SGOT 38 U/L (17-59); BLOOD UREA NITROGEN 14 mg/dL (9-20); CALCIUM 9.5 mg/dl (8.6-10.4); GFR NON-AFRICAN AMERICAN > 60; LIPASE 115 U/L (23-300)
[2018-04-24 23:28] VITALS: BP 139/89; PULSE 84; RESP 20; TEMP 97.9; O2SAT 96
--- NOTE | 2018-04-25 09:04 | CT ---
CT abdomen and pelvis HISTORY: Flank pain. COMPARISON: None available. TECHNIQUE: Multiple contiguous axial images were performed through the abdomen and pelvis without the use of intravenous contrast. Subsequently, sagittal and coronal reformatted images were obtained. Findings: Lung bases are clear. No pleural or pericardial effusion. Fatty infiltration of the liver. Contracted gallbladder. Spleen is preserved. Adrenal glands are preserved. Pancreas is preserved. Mild mucosal wall thickening of the lower esophagus at the esophagogastric junction which may represent reflux esophagitis. Right kidney: Mild perinephric fat stranding. No gross calculi or hydronephrosis. Left Kidney: Mild perinephric fat stranding. No gross calculi or hydronephrosis. Urinary bladder is preserved. Prostate and seminal vesicles are grossly preserved. Few scattered colonic diverticuli. Appendix grossly preserved. Some focal areas of increased attenuation within the appendix may represent residual contrast from prior study versus less likely small appendicolith. Clinical correlation. Few shotty para-aortic and inguinal lymph nodes. Few shotty mesenteric lymph nodes with some mild mesenteric fat stranding suggestive for a mild mesenteric adenitis. Clinical correlation. Degenerative changes in the spine. Small fat containing left inguinal hernia. Impression: 1. Few shotty mesenteric lymph nodes with some mild mesenteric fat stranding suggestive for a mild mesenteric adenitis. Clinical correlation. 2. Fatty infiltration of the liver. 3. Small fat containing left inguinal hernia. 4. Appendix grossly preserved. Some focal areas of increased attenuation within the appendix may represent residual contrast from prior study versus less likely small appendicolith. Clinical correlation. Additional findings as above. A preliminary report was generated at 11:10 p.m. on 04/24/[address] Kalin Mcmahan from [employer].
== END 2018-04-24 23:26 | disposition home or self-care (01) ==
LOC: C.ER 20:28
DX: R10.9 Unspecified abdominal pain (principal); K40.90 Unilateral inguinal hernia, without obstruction or gangrene, not specified as recurrent; Z72.0 Tobacco use
CPT/HCPCS: 74176; 80053; 81001; 83690; 85025; 85610; 85730; 99284; J7030

== ENCOUNTER 2018-05-13 20:52 | Emergency (ER) | payer MEDICAID ==
[2018-05-13 21:03] VITALS: RESP 18
[2018-05-13] MEDS ORDERED: Sodium Chloride 0.9% 1,000 ML IV ONE (21:30)
[2018-05-13] MEDS ORDERED: Sodium Chloride 0.9% 1,000 ML ONE (21:48)
[2018-05-13 21:58] LABS: SQUAMOUS EPITHIAL 1 /hpf (0-5); URINE BACTERIA RARE (<OCC); URINE BILIRUBIN NEGATIVE (NEGATIVE); URINE BLOOD 2+ (NEGATIVE); URINE CLARITY Clear (Clear); URINE COLOR Yellow (YELLOW); URINE GLUCOSE (UA) NORMAL (Normal); URINE LEUKOCYTE ESTERASE NEG Leu/uL (Negative); URINE PROTEIN NEGATIVE (NEGATIVE); URINE UROBILINOGEN NORMAL mg/dL (0.2-1.0)
[2018-05-13 22:00] LABS: BARBITURATES, UR NEGATIVE (NEGATIVE); OPIATES, UR NEGATIVE (NEGATIVE); PHENCYCLIDINE, UR NEGATIVE (NEGATIVE)
[2018-05-13 22:01] LABS: BENZODIAZEPINES, UR POSITIVE (NEGATIVE)
[2018-05-13 22:09] LABS: BASO # 0.1 K/uL (0.0-0.2); BASO % 0.9 % (0.0-2.0); EOS # 0.3 K/uL (0.0-0.7); EOS % 2.8 % (0.0-4.0); HEMOGLOBIN 14.3 g/dL (12.0-18.0); LYMPH # 1.6 K/uL (1.0-4.3); LYMPH % 16.6 % (20.0-40.0); MEAN CELL VOLUME 90.5 fL (80.0-94.0); MEAN CORPUSCULAR HEMOGLOBIN 30.1 pg (27.0-31.0); MEAN CORPUSCULAR HGB CONC 33.3 g/dL (33.0-37.0); MEAN PLATELET VOLUME 8.8 fL (7.2-11.7); MONO # 0.7 K/uL (0.0-0.8); MONO % 7.7 % (0.0-10.0); RBC 4.77 Mil/uL (4.40-5.90); RED CELL DISTRIBUTION WIDTH 13.8 % (11.5-14.5); WHITE BLOOD COUNT 9.7 K/uL (4.8-10.8)
[2018-05-13 22:41] LABS: ALB/GLOB RATIO 1.4 (1.0-2.1); ALBUMIN 4.5 g/dL (3.5-5.0); ALT/SGPT 62 U/L (21-72); AST/SGOT 71 U/L (17-59); BLOOD UREA NITROGEN 12 mg/dL (9-20); CALCIUM 9.3 mg/dl (8.6-10.4); GFR NON-AFRICAN AMERICAN > 60; LIPASE 136 U/L (23-300)
--- NOTE | 2018-05-13 22:53 | C.PDOC ---
History Of Present Illness 37 year old male presents with a myriad of complaints including crampy abdominal pain which is chronic, headache, and anxiety. Patient states he took one advil tablet today and a piece of 0.5mg xanax. He is not working and is not in school. Patient had normal CT abd/pel in March 2014, February 2018, and April 2018. He claims to have an small inguinal hernia noticed in previous CT but no inguinal area tenderness. Time Seen by Provider: 05/13/18 21:05 Chief Complaint (Nursing): GI Problem History Per: Patient History/Exam Limitations: no limitations Onset/Duration Of Symptoms: Days Current Symptoms Are (Timing): Still Present Quality Of Discomfort: Cramping Exacerbating Factors: None Alleviating Factors: None Recent travel outside of the [place]: No Past Medical History Reviewed: Historical Data, Nursing Documentation, Vital Signs Vital Signs: Last Vital Signs Temp 98.8 F 05/13/18 20:57 Pulse 86 05/13/18 20:57 Resp 18 05/13/18 20:57 BP 133/93 H 05/13/18 20:57 Pulse Ox 97 05/13/18 20:57 - Medical History PMH: Anxiety, Hiatal Hernia Denies: Chronic Kidney Disease - [facility] Procedures TETANUS TOXOID ADMINIST (02/07/14) Family History: States: Unknown Family Hx - Social History Hx Tobacco Use: Yes Hx Alcohol Use: Yes Hx Substance Use: No - Immunization History Hx Tetanus Toxoid Vaccination: No Hx Influenza Vaccination: No Hx Pneumococcal Vaccination: No Review Of Systems Constitutional: Negative for: Fever, Chills Cardiovascular: Negative for: Chest Pain, Palpitations Respiratory: Negative for: Cough, Shortness of Breath Gastrointestinal: Positive for: Abdominal Pain. Negative for: Nausea, Vomiting Neurological: Positive for: Headache. Negative for: Weakness, Numbness Psych: Positive for: Anxiety Physical Exam - Physical Exam Appears: Non-toxic, Other (Anxious) Skin: Normal Color, Warm, Dry Head: Atraumatic, Normacephalic Eye(s): bilateral: Normal Inspection Nose: Normal Oral Mucosa: Moist Neck: Normal, Supple Chest: Symmetrical, No Tenderness Cardiovascular: Rhythm Regular Respiratory: Normal Breath Sounds, No Rales, No Rhonchi, No Wheezing Gastrointestinal/Abdominal: Soft, Tenderness (Epigastric to percussion), No Guarding, No Rebound, Other (Dull to percussion at bilateral sides) Neurological/Psych: Oriented x3, Normal Speech ED Course And Treatment - Laboratory Results Result Diagrams: 05/13/18 22:04 05/13/18 22:04 Lab Results: Total Bilirubin 0.6 mg/dL (0.2-1.3) 05/13/18 22:04 AST 71 U/L (17-59) H D 05/13/18 22:04 ALT 62 U/L (21-72) 05/13/18 22:04 Alkaline Phosphatase 87 U/L (38-126) 05/13/18 22:04 Total Protein 7.7 g/dL (6.3-8.3) 05/13/18 22:04 Albumin 4.5 g/dL (3.5-5.0) 05/13/18 22:04 Globulin 3.2 gm/dL (2.2-3.9) 05/13/18 22:04 Albumin/Globulin Ratio 1.4 (1.0-2.1) 05/13/18 22:04 Lipase 136 U/L (23-300) 05/13/18 22:04 Urine Color Yellow (YELLOW) 05/13/18 21:37 Urine Clarity Clear (Clear) 05/13/18 21:37 Urine pH 5.0 (5.0-8.0) 05/13/18 21:37 Ur Specific [place] 1.020 (1.003-1.030) 05/13/18 21:37 Urine Protein Negative mg/dL (NEGATIVE) 05/13/18 21:37 Urine Glucose (UA) Normal mg/dL (Normal) 05/13/18 21:37 Urine Ketones Negative mg/dL (NEGATIVE) 05/13/18 21:37 Urine Blood 2+ (NEGATIVE) H 05/13/18 21:37 Urine Nitrate Negative (NEGATIVE) 05/13/18 21:37 Urine Bilirubin Negative (NEGATIVE) 05/13/18 21:37 Urine Urobilinogen Normal mg/dL (0.2-1.0) 05/13/18 21:37 Ur Leukocyte Esterase Neg Alpesh/uL (Negative) 05/13/18 21:37 Urine WBC (Auto) 1 /hpf (0-5) 05/13/18 21:37 Urine RBC (Auto) 6 /hpf (0-3) H 05/13/18 21:37 Ur Squamous Epith Cells 1 /hpf (0-5) 05/13/18 21:37 Urine Bacteria Rare (<OCC) 05/13/18 21:37 Lab Interpretation: Normal (ua neg, tox + benzo's (xanax TRAPPER BIRD)) O2 Sat by Pulse Oximetry: 97 Pulse Ox Interpretation: Normal - Radiology CXR: Interpreted by Me CXR Interpretation: Yes: No Acute Disease - Other Rad abd x 2 X-Ray: Interpreted by Me (+ increased stool/gas R colon) Reevaluation Time: 22:52 Reassessment Condition: Improved Medical Decision Making Medical Decision Making: abd colic and a myriad of other acute on chronic complaints in various organ systems more c/w chronic constipation and anxiety ext hermorroids Disposition Doctor Will See Patient In The: Office Counseled Patient/Family Regarding: Studies Performed, Diagnosis - Disposition Referrals: [facility] [Outside] [facility] [facility] [Outside] [facility] [Outside] [facility] [Outside] Disposition: HOME/ ROUTINE Disposition Time: 22:53 Condition: GOOD Additional Instructions: drink laxative now re-evaluate your abdominal discomfort after using the bathroom 2-3 times diet and exercise changes 45 min power walk 5 days/week 7 fresh fruits and vegetables/day Seek outpatient Psych eval for your anxiety Go to [facility]. Instructions: Constipation in Adults, Anxiety, Adult (DC) Forms: [employer] (Estonian) - Clinical Impression Clinical Impression: Abdominal pain, colicky, Anxiety - Scribe Statement The provider has reviewed the documentation as recorded by the Scribromulo Iqbal All medical record entries made by the Scribe were at my direction and personally dictated by me. I have reviewed the chart and agree that the record accurately reflects my personal performance of the history, physical exam, medical decision making, and the department course for this patient. I have also personally directed, reviewed, and agree with the discharge instructions and disposition.
[2018-05-13] MEDS ORDERED: Magnesium Citrate Oral SOL (300 ml) PO ONE (22:57)
[2018-05-13] MEDS ORDERED: Magnesium Citrate Oral SOL (300 ml) ONE (23:06)
[2018-05-13 23:23] VITALS: BP 123/87; PULSE 73; TEMP 98.4
[2018-05-14 01:08] VITALS: O2SAT 97
--- NOTE | 2018-05-14 10:34 | RAD ---
Abdomen four views History: Abdominal pain. Comparison: None available. Findings: Heart size within normal limits. No focal infiltrate or effusion. Right hilar prominence. Fecal retention in the right hemicolon. Relative paucity of small bowel gas as well as gas within the left hemicolon. Impression: Nonspecific bowel gas pattern with relative paucity of small bowel gas as well as gas within the left donnell colon. Fecal retention in the right hemicolon. If pain persists, consider correlation with CT scan.
== END 2018-05-13 23:24 | disposition home or self-care (01) ==
LOC: C.ER 20:52
DX: R10.84 Generalized abdominal pain (principal); F41.9 Anxiety disorder, unspecified
CPT/HCPCS: 74022; 80053; 80324; 80345; 80346; 80349; 80353; 80358; 80361; 81001; 83690; 83992; 85025; 96374; 99284; J1885; J7030